=== PATIENT | male | born 1975 | race Two or more races ===

== ENCOUNTER 2016-12-05 08:43 | Emergency (ER) | payer BC, OTHER ==
[~2016-12-05] VITALS: Wt 70.0 kg
[2016-12-05] MEDS ORDERED: SOD CHLORIDE 0.9% 1,000 ML IV STA (09:37)
[2016-12-05] MEDS ORDERED: ONDANSETRON 4 MG INJ IV STA (09:37)
[2016-12-05] MEDS ORDERED: morphine 4 MG/ML VIAL IV STA (09:37)
[2016-12-05 10:14] LABS: BASOPHILS % 0.3 % (0.0-2.0); EOSINOPHILS # 0.2 10^3/ul (0.0-0.5); EOSINOPHILS % 1.7 % (0.0-7.0); HEMATOCRIT 42.2 % (42.0-52.0); HEMOGLOBIN 14.5 g/dl (14.0-18.0); LYMPHOCYTES # 2.5 10^3/ul (0.8-2.9); LYMPHOCYTES % 21.9 % (15.0-51.0); MEAN CORPUSCULAR HEMOGLOBIN 27.9 pg (29.0-33.0); MEAN CORPUSCULAR HGB CONC 34.4 g/dl (32.0-37.0); MEAN CORPUSCULAR VOLUME 81.2 fl (82.0-101.0); MONOCYTE # 0.9 10^3/ul (0.3-0.9); MONOCYTES % 8.4 % (0.0-11.0); NEUTROPHIL # 7.6 10^3/ul (1.6-7.5); NEUTROPHILS % 67.7 % (39.0-77.0); PLATELET COUNT 328 10^3/UL (140-440); RED CELL DISTRIBUTION WIDTH 12.7 % (11.5-14.5); UNCORRECTED WBC 11.2 10^3/ul (4.8-10.8); WHITE BLOOD COUNT 11.2 10^3/ul (4.8-10.8)
[2016-12-05 10:17] LABS: ALBUMIN 4.1 g/dl (3.3-4.9); POTASSIUM 3.7 mmol/L (3.5-5.1)
[2016-12-05 10:19] LABS: BILIRUBIN,INDIRECT 0.4 mg/dl (0-1.1); BILIRUBIN,TOTAL 0.4 mg/dl (0.2-1.3); CREATININE 0.83 mg/dl (0.61-1.24)
[2016-12-05 10:20] LABS: ALBUMIN/GLOBULIN RATIO 1.17; CALCIUM 9.2 mg/dl (8.4-10.2); TOTAL PROTEIN 7.6 g/dl (6.1-8.1)
[2016-12-05 10:23] LABS: CONDITION 1; LH ANALYZER COMMENTS 1
--- NOTE | 2016-12-05 10:27 | RADRPT ---
PROCEDURE: CT abdomen and pelvis without contrast. CLINICAL INDICATION: Left upper quadrant pain for 1 week TECHNIQUE: Continues 2.5 mm axial images were obtained from the domes of the diaphragms to the inf erior pubic rami. No oral or intravenous contrast was administered. The calculated dose length prod uct (DLP) = 1123.97 mGy-cm. Exam CTDlvol = 17.67 mGy. One or more of the following dose reduction techniques were used: Automated exposure control, adjustment of the mA and or KV according to patie nt size, or use of iterative reconstruction technique. One or more of the following dose reduction techniques were used: Automated exposure control, adjustment of the mA and or KV according to patien t size, or use of iterative reconstruction technique. COMPARISON: None. FINDINGS: Images through the lung bases demonstrate minimal dependent atelectasis. No pleural pericardial flu id is seen. Liver, gallbladder, pancreas, spleen, and adrenals are within normal limits on this noncontrast stud y. Evaluation of the genitourinary system demonstrates no evidence of renal calculi or obstructive uropathy. No perinephric fluid or stranding is seen. Aorta is normal in caliber. No pathologicall y enlarged mesenteric lymph nodes are seen. The stomach and small bowel loops are within normal jones its. There is no small bowel dilatation or obstruction. No free fluid, free air, abscess is noted in the upper abdomen CT pelvis: Images through the pelvis demonstrate no free fluid, free air, abscess. Bladder is norm ally distended grossly unremarkable. Prostate and seminal vesicles are within normal limits. Evalu ation of the colon demonstrates no diverticulosis, diverticulitis or acute colitis. Normal appendix is visualized. The terminal ileum is unre No destructive bony lesions are seen. There is a small calcified left pelvic lymph node IMPRESSION: Unremarkable CT scan of the abdomen and pelvis. No acute inflammatory process, mass, or adenopathy No evidence of renal calculi or obstructive uropathy Normal appendix RPTAT: HH .Spencer Medellin MD, Date Time Electronically viewed and signed by .Spencer Medellin MD, MD on 12/05/2016 10:26 .W/
--- NOTE | 2016-12-05 10:40 | ERD ---
ER Documentation Chief Complaint Date/Time DATE: 12/05/16 TIME: 10:33 Chief Complaint AP SINCE YESTERDAY. NAUSEA NO VOMITING. NO RELIEF WITH MEDS HPI This patient is a 41-year-old male with no significant medical history presenting to the emergency department for left upper quadrant pain ongoing for the past 7 days. He states his pain has been worsening and is currently an 8 out of 10 on the pain scale. He reports the pain is woken him up from sleep 2 nights out of the past week. The patient has had some nausea but denies any vomiting. He saw his primary care physician 2 days ago who prescribed him Lomotil and recommended he had a CT scan of his abdomen done. The patient denies any difficulty urinating, vomiting, diarrhea, other GI issues, or other symptoms at this time. ROS All systems reviewed and are negative except as per history of present illness. Medications Home Meds Active Scripts Omeprazole* (Omeprazole*) 10 Mg Capsule., 10 MG PO DAILY, #30 CAP Prov:MEENU HUNT PA-C 12/05/16 PMhx/Soc History of Surgery: No Anesthesia Reaction: No Hx Neurological Disorder: No Hx Respiratory Disorders: No Hx Cardiac Disorders: No Hx Psychiatric Problems: No Hx Miscellaneous Medical Probl: Yes (Abdominal pain) Hx Alcohol Use: No Hx Substance Use: No Hx Tobacco Use: No Smoking Status: Never smoker FmHx Noncontributory for chief complaint Physical Exam Vitals Vital Signs Date Time Temp Pulse Resp B/P Pulse Ox O2 Delivery O2 Flow Rate FiO2 12/05/16 08:47 98.9 95 21 149/87 99 Physical Exam INITIAL VITAL SIGNS: Reviewed by me. GENERAL: Alert and interactive. No acute distress. HEAD: Head is normocephalic and atraumatic. EYES: EOMI. No scleral icterus. No conjunctival injection. ENT: Moist mucosa. NECK: Supple. Full range of motion. RESPIRATORY: Normal respiratory effort. Clear breath sounds bilaterally. No wheezing, rales, or rhonchi. CV: Regular rate and rhythm. Normal S1 S2. No S3 or S4. No murmurs. ABDOMEN: Mild tenderness to palpation in the left upper quadrant. There is no rebound tenderness or guarding. There is no McBurney's point tenderness. There is no abdominal distention or masses palpated. EXTREMITIES: No deformity. SKIN: Warm and dry. NEUROLOGIC: Alert and oriented x 4. Speech is normal. Moves all extremities equally. No motor or sensory deficits noted. Result Diagram: 12/05/16 1000 12/05/16 1000 Results 24 hrs Laboratory Tests Test 12/05/16 10:00 12/05/16 12:23 Alanine Aminotransferase (ALT/SGPT) 32IU/L Albumin 4.1g/dl Albumin/Globulin Ratio 1.17 Alkaline Phosphatase 72IU/L Anion Gap 14 Aspartate Amino Transf (AST/SGOT) 25IU/L Basophils # 0.010^3/ul Basophils % 0.3% Blood Morphology Comment Blood Urea Nitrogen 11mg/dl Calcium Level 9.2mg/dl Carbon Dioxide Level 28mmol/L Chloride Level 98mmol/L Creatinine 0.83mg/dl Direct Bilirubin 0.00mg/dl Eosinophils # 0.210^3/ul Eosinophils % 1.7% Globulin 3.50g/dl Glucose Level 95mg/dl Hematocrit 42.2% Hemoglobin 14.5g/dl Indirect Bilirubin 0.4mg/dl Lipase 72U/L Lymphocytes # 2.510^3/ul Lymphocytes % 21.9% Mean Corpuscular Hemoglobin 27.9pg Mean Corpuscular Hemoglobin Concent 34.4g/dl Mean Corpuscular Volume 81.2fl Mean Platelet Volume 7.0fl Monocytes # 0.910^3/ul Monocytes % 8.4% Neutrophils # 7.610^3/ul Neutrophils % 67.7% Nucleated Red Blood Cells # 0.010^3/ul Nucleated Red Blood Cells % 0.0/100WBC Platelet Count 55525^3/UL Potassium Level 3.7mmol/L Red Blood Count 5.2010^6/ul Red Cell Distribution Width 12.7% Sodium Level 136mmol/L Total Bilirubin 0.4mg/dl Total Protein 7.6g/dl White Blood Count 11.210^3/ul Bedside Urine Blood Trace-intact Bedside Urine Glucose (UA) Negative Bedside Urine Ketones (LAB) Negative Bedside Urine Leukocyte Esterase (L Negative Bedside Urine Nitrite (LAB) Negative Bedside Urine Protein (LAB) Negative Bedside Urine pH (LAB) 5.5 Current Medications Medications (Trade) Dose Ordered Sig/Dayanara Route PRN Reason Start Time Stop Time Status Last Admin Dose Admin Sodium Chloride (NS) 1,000 ml @ 1,000 mls/hr Q1H STAT IV 12/05/16 09:37 12/05/16 10:36 DC 12/05/16 09:55 Morphine Sulfate (morphine) 4 mg ONCE STAT IV 12/05/16 09:37 12/05/16 09:40 DC 12/05/16 09:56 Ondansetron HCl (Zofran Inj) 4 mg ONCE STAT IV 12/05/16 09:37 12/05/16 09:40 DC 12/05/16 09:55 Procedures/MDM EMERGENCY DEPARTMENT COURSE / MEDICAL DECISION MAKING: This is a 41-year-old male who comes to the emergency room secondary to complaints of left upper quadrant pain and nausea. The patient was given IV fluids, IV morphine, and IV Zofran in the department. On re-evaluation, the patient was feeling improved. Laboratory results reviewed and showed no significant acute abnormalities. EKG: Interpreted by ED physician Rate/Rhythm: Sinus bradycardia with a rate of 54 bpm QRS, ST, T-waves: No changes consistent w/ acute ischemia Impression: No evidence of ischemia or arrhythmia Radiology: PROCEDURE: CT abdomen and pelvis without contrast. CLINICAL INDICATION: Left upper quadrant pain for 1 week TECHNIQUE: Continues 2.5 mm axial images were obtained from the domes of the diaphragms to the inferior pubic rami. No oral or intravenous contrast was administered. The calculated dose length product (DLP) = 1123.97 mGy-cm. Exam CTDlvol = 17.67 mGy. One or more of the following dose reduction techniques were used: Automated exposure control, adjustment of the mA and or KV according to patient size, or use of iterative reconstruction technique. One or more of the following dose reduction techniques were used: Automated exposure control, adjustment of the mA and or KV according to patient size, or use of iterative reconstruction technique. COMPARISON: None. FINDINGS: Images through the lung bases demonstrate minimal dependent atelectasis. No pleural pericardial fluid is seen. Liver, gallbladder, pancreas, spleen, and adrenals are within normal limits on this noncontrast study. Evaluation of the genitourinary system demonstrates no evidence of renal calculi or obstructive uropathy. No perinephric fluid or stranding is seen. Aorta is normal in caliber. No pathologically enlarged mesenteric lymph nodes are seen. The stomach and small bowel loops are within normal limits. There is no small bowel dilatation or obstruction. No free fluid, free air, abscess is noted in the upper abdomen CT pelvis: Images through the pelvis demonstrate no free fluid, free air, abscess. Bladder is normally distended grossly unremarkable. Prostate and seminal vesicles are within normal limits. Evaluation of the colon demonstrates no diverticulosis, diverticulitis or acute colitis. Normal appendix is visualized. The terminal ileum is unre No destructive bony lesions are seen. There is a small calcified left pelvic lymph node IMPRESSION: Unremarkable CT scan of the abdomen and pelvis. No acute inflammatory process, mass, or adenopathy No evidence of renal calculi or obstructive uropathy Normal appendix. The primary diagnosis is abdominal pain with unclear etiology. I have low suspicion for cholecystitis, appendicitis, pancreatitis, or other emergent conditions at this time. Discharge: I have discussed the lab results and diagnostic findings with the patient and answered any questions or concerns. The patient was discharged with a prescription for omeprazole. The patient was advised to followup with their PMD in 1-2 days and to return to the Emergency Department if there are any new or worsening symptoms. The patient understood and agreed with the diagnosis, treatment and plan. The patient is stable for discharge at this time. Departure Diagnosis: Primary Impression: Abdominal pain Condition: Stable Additional Instructions: Follow-up with your primary care physician within 1 week. Return to the emergency department immediately should you have any new or worsening symptoms, uncontrolled fevers, or other unexplained symptoms. Take all medications as directed. MEENU HUNT PA-C Dec 05, 2016 10:40
[2016-12-05 12:22] LABS: URINE BLOOD (Dip) POC Trace-intact (NEGATIVE)
[2016-12-05] MEDS ORDERED: OMEP10CA4 PO (12:34)
== END 2016-12-05 12:55 | disposition home or self-care (01) ==
LOC: FTE 08:43
DX: R10.12 Left upper quadrant pain (principal); R11.0 Nausea
CPT/HCPCS: 36415; 74176; 80053; 81003; 83690; 85025; 96374; 96375; J2270; J2405; J7030; Z7502; 93005

== ENCOUNTER 2017-02-18 05:39 | Day surgery (SDC) | payer BC ==
[~2017-02-18] VITALS: Ht 167.6 cm; Wt 79.9 kg
[~2017-02-18 05:39] MED LIST: OMEP10CA4 PO
[2017-02-18 06:40] VITALS: Ht 167.6 cm; Wt 79.9 kg
[2017-02-18 07:15] VITALS: BP 146/79; PULSE 87; RESP 18
[2017-02-18 07:36] VITALS: BP 115/74; PULSE 66; RESP 19
--- NOTE | 2017-02-18 08:09 | GILP ---
DATE OF PROCEDURE: NAME OF PROCEDURE: Esophagogastroduodenoscopy and biopsy. SURGEON: Catia Montano MD PREOPERATIVE DIAGNOSIS: Abdominal pain. POSTOPERATIVE DIAGNOSES: 1. Gastritis with erosions. 2. Biopsy was positive for Helicobacter pylori infection. INDICATION FOR THE PROCEDURE: Mr. Jamie Fong is a 41-year-old male patient who had upper abdomi nal pain not responding to therapy. The patient was scheduled for endoscopic examination for furthe r evaluation. The procedure and possible complications were well explained to the patient. The patient understood and consented to the procedure. The gastroscope was carefully introduced into the esophagus and under direct vision it was advanced to the stomach and through the pylorus, into the duodenal bulb and descending duodenum. FINDINGS: ESOPHAGUS: The mucosa was normal. STOMACH: The patient had gastritis with erosions. Biopsy was positive for Helicobacter pylori infe ction. DUODENUM: Normal. He tolerated the procedure very well and there was no complication from the procedure. At the end o f the procedure he was awake with stable vital signs and he was discharged home to the care of his [facility]. IMPRESSION: 1. Gastritis with erosions. 2. Biopsy was positive for Helicobacter pylori infection. PLAN: 1. Nexium 24 hours p.o. q.a.m. 2. Zantac 300 mg p.o. b.i.d. for 14 days. 3. Doxycycline 100 mg p.o. b.i.d. for 14 days. 4. Flagyl 500 mg p.o. b.i.d. for 14 days. 5. Pepto-Bismol 2 tablets p.o. q.i.d. for 14 days. Dictated By: CATIA LUIS/NATALEE Conf#: [id number] DID#: [id number]
--- NOTE | 2017-02-19 07:43 | CONS ---
DATE OF ADMISSION: 02/18/2017 DATE OF CONSULTATION: TYPE OF CONSULTATION: Gastroenterology Dear Dr. Julio, I thank you very much for this kind referral. HISTORY OF PRESENT ILLNESS: The patient is a 41-year-old male patient who has been referred to me f or further evaluation of abdominal pain. The patient states he has epigastric pain, which is not re sponding to therapy with omeprazole. The pain was severe. The patient went to the emergency room. Patient also had abdominal CT scan and ultrasound done and they were normal. There is no past hist ory of peptic ulcer disease. The patient has been taking naproxen. There is no history of gallston es. He does not have any fever, chills or jaundice. There is no history of liver disease. He estela es any change in bowel habits or rectal bleeding. There is no past history of inflammatory bowel di sease. He is not a hypertensive or diabetic. He does not have any heart disease or lung problem. There is no history of kidney disease. SOCIAL HISTORY: He is a nonsmoker. He does not abuse alcohol. FAMILY HISTORY: Negative for gastrointestinal tract neoplasm. ALLERGIES: HE STATES HE IS ALLERGIC TO AMOXICILLIN. MEDICATIONS: Omeprazole. PHYSICAL EXAMINATION VITAL SIGNS: He is 5 feet 5 inches tall, and he weighs 167 pounds. HEART: Normal 1st and 2nd heart sounds. LUNGS: Clear. ABDOMEN: Soft without any distention. Liver and spleen are not palpable. There are no masses. Th ere is no focal tenderness. Normal bowel sounds are heard. CENTRAL NERVOUS SYSTEM: Does not reveal any focal neurological deficit. IMPRESSION 1. Upper abdominal pain, not responding to therapy with omeprazole. 2. Patient had abdominal CT scan done and it was normal. 3. Patient is on naproxen. 4. HISTORY OF ALLERGY TO AMOXICILLIN. PLAN 1. Continue omeprazole. 2. Endoscopic examination for further evaluation. 3. Patient wants the procedure to be done without any sedation. 4. Patient was told that without sedation, it may be uncomfortable, but the patient strongly says h e does not want any sedation for the procedure. The procedure and possible complications are well explained to the patient. I thank you once again. With warmest personal regards, Dictated By: CATIA LUIS/NATALEE Conf#: [id number] DID#: [id number] CC: DR. DOROTA HATCH;*End*
== END 2017-02-18 12:00 | disposition home or self-care (01) ==
LOC: GIL 05:39
PROVIDERS: ATTEND Internal Medicine Gastroenterology
DX: K29.60 Other gastritis without bleeding (principal); B96.81 Helicobacter pylori [H. pylori] as the cause of diseases classified elsewhere
CPT/HCPCS: 43239; 87081; Z7610

== ENCOUNTER 2017-09-27 11:11 | Emergency (ER) | payer BC ==
[~2017-09-27] VITALS: Ht 167.6 cm; Wt 81.9 kg
[2017-09-27 11:14] VITALS: Ht 167.6 cm; Wt 81.9 kg
[2017-09-27] MEDS ORDERED: HYDR-906 PO (11:29)
[2017-09-27] MEDS ORDERED: CEPH-443 PO (11:29)
[2017-09-27] MEDS ORDERED: HYDROCODONE/APAP (5/325) TAB PO ONE (11:30)
--- NOTE | 2017-09-27 11:32 | ERD ---
ER Documentation Chief Complaint Chief Complaint DENTAL PAIN LEFT JAW [id number] HPI This 42-year-old male presents with left dental pain for the last week. He went to the dentist recommended he have 2 root canals but he could not afford the recio andrews of $2000. Patient denies any fevers, difficulty swallowing difficulty breathing. ROS All systems reviewed and are negative except as per history of present illness. Medications Home Meds Active Scripts Hydrocodone/Acetaminophen (Rifle 5-325 Tablet) 1 Each Tablet, 1 TAB PO Q6H Y for PAIN, #12 TAB Prov:RISSA LERNER MD 09/27/17 Cephalexin* (Keflex*) 500 Mg Capsule, 500 MG PO QID for 10 Days, CAP Prov:RISSA LERNER MD 09/27/17 Omeprazole* (Omeprazole*) 10 Mg Capsule.dr, 10 MG PO DAILY, #30 CAP Prov:MEENU HUNT PA-C 12/05/16 Allergies Allergies: Coded Allergies: amoxicillin (Verified Allergy, Unknown, 02/18/17) PMhx/Soc History of Surgery: No Anesthesia Reaction: No Hx Neurological Disorder: No Hx Respiratory Disorders: No Hx Cardiac Disorders: No Hx Psychiatric Problems: No Hx Miscellaneous Medical Probl: No Hx Alcohol Use: No Hx Substance Use: No Hx Tobacco Use: No Physical Exam Vitals Vital Signs Date Time Temp Pulse Resp B/P Pulse Ox O2 Delivery O2 Flow Rate FiO2 09/27/17 11:14 98.9 95 20 144/91 98 Physical Exam Const: [], Not ill-appearing. Head: Atraumatic Eyes: Normal Conjunctiva ENT: Normal External Ears, Nose and Mouth. Left lower molars with caries no visual induration or erythema. Airways patent uvula midline. Neck: Full range of motion..~ No meningismus. Resp: Clear to auscultation bilaterally Cardio: Regular rate and rhythm, no murmurs Abd: Soft, non tender, non distended. Normal bowel sounds Skin: No petechiae or rashes Back: No midline or flank tenderness Ext: No cyanosis, or edema Neur: Awake and alert Psych: Normal Mood and Affect Results 24 hrs Current Medications Medications (Trade) Dose Ordered Sig/Dayanara Route PRN Reason Start Time Stop Time Status Last Admin Dose Admin Acetaminophen/ Hydrocodone Bitart (Rifle (5/325)) 1 tab ONCE ONCE PO 09/27/17 11:30 09/27/17 11:31 Procedures/MDM Patient presents with poor dentition and dental pain there is no evidence of facial cellulitis or airway obstruction or sepsis. Patient will be treated with Keflex and a short course of Rifle and referral to local sliding scale dentist. He is advised to return otherwise for fevers, difficulty breathing, difficulty swallowing, new or worsening symptoms. The patient was stable with no new complaints during the ER course. Clinically, there is no current evidence to suggest meningitis, sepsis, acute abdomen, pneumonia, acute coronary syndrome, pulmonary embolism, or any other emergent condition appearing to require further evaluation or hospitalization. The patient should certainly return for any new or worsening symptoms per the aftercare instructions. They should otherwise follow-up with her primary care doctor for reevaluation this week. Departure Diagnosis: Primary Impression: Toothache Condition: Stable Patient Instructions: Dental Pain Referrals: [facility] ([facility]) Additional Instructions: See dentist for further evaluation treatment. Recheck otherwise for new or worsening symptoms. RISSA LERNER MD Sep 27, 2017 11:32
== END 2017-09-27 11:58 | disposition home or self-care (01) ==
LOC: FTE 11:11
DX: K08.89 Other specified disorders of teeth and supporting structures (principal)
CPT/HCPCS: Z7502; Z7610; 99284

== ENCOUNTER → 2018-01-15 | Emergency (ER) | END | disposition home or self-care (01) ==

== ENCOUNTER 2018-09-16 09:14 | Emergency (ER) | END 2018-09-16 12:22 | disposition home or self-care (01) ==